=== PATIENT | female | born 1955 | race Caucasian/White ===

== ENCOUNTER 2018-05-16 12:23 | Emergency (ER) | payer OTHER, MEDICARE ==
[~2018-05-16] VITALS: Ht 167.6 cm; Wt 159.0 kg
[2018-05-16 12:40] VITALS: BP 142/73
--- NOTE | 2018-05-16 13:32 | NUR ---
XRAYS CANT BE DONE, CANT LIE DOWN DUE TO BREATHING
--- NOTE | 2018-05-16 13:40 | NUR ---
pt to ed room 23 via wheelchair from lobby in nad at this time
[2018-05-16] MEDS ORDERED: HYDROmorphone 2 MG/ML, 1ML ONE (14:29)
[2018-05-16] MEDS ORDERED: HYDROmorphone 2 MG/ML, 1ML IM ONE (14:30)
--- NOTE | 2018-05-16 14:59 | NUR ---
Patient/Caregiver given discharge instructions and they have confirmed that they understand the instructions. Patient wheeled to discharge area for pt comfort.
== END 2018-05-16 15:00 ==
LOC: ED 14:54
DX: M54.16 Radiculopathy, lumbar region (principal)
CPT/HCPCS: 72100; 96372; 99283; J1170

== ENCOUNTER 2018-06-25 15:55 | Inpatient (IN) | payer OTHER, MEDICARE ==
[~2018-06-25] VITALS: Ht 167.6 cm; Wt 151.0 kg
[2018-06-25 16:56] LABS: BASOPHILS # (AUTO) 0.02 x10^3/uL (0-0.1); BASOPHILS % (AUTO) 0 % (0-1); EOSINOPHILS # (AUTO) 0.08 x10^3/uL (0-0.4); EOSINOPHILS % (AUTO) 1 % (1-7); LYMPHOCYTES # (AUTO) 1.81 x10^3/uL (1-3.4); LYMPHOCYTES % (AUTO) 19 % (22-44); MD NO; MEAN CORPUSCULAR HEMOGLOBIN 31.2 pg (27.0-34.8); MEAN CORPUSCULAR HGB CONC 33.1 g/dL (32.4-35.8); MEAN CORPUSCULAR VOLUME 94.3 fL (80-100); MONOCYTES # (AUTO) 0.46 x10^3/uL (0.2-0.8); MONOCYTES % (AUTO) 5 % (2-9); NEUTROPHILS # (AUTO) 7.42 x10^3/uL (1.8-6.8); NEUTROPHILS % (AUTO) 76 % (42-75); PLATELET COUNT 205 x10^3/uL (130-400); RED BLOOD COUNT 4.36 x10^6/uL (3.82-5.3); RED CELL DISTRIBUTION WIDTH 14.8 % (9.6-15.2)
--- NOTE | 2018-06-25 17:00 | NUR ---
PT PRESENTED TO ED WITH SHORTNESS OF BREATH FOR A FEW DAYS. PT IS MORBIDLY OBESE AND STATES SHE WEARS HER BIPAP AT HOME. PT VERY ANXIOUS. PT PLACED IN ROOM AND PLACED ON BP, CARDIAC AND CONT. PULSE OXIMETER. PT PLACED ON 4-5 LITERS NC. EKG DONE AND PRESENTED TO .
[2018-06-25 17:08] LABS: ALANINE AMINOTRANSFERASE 41 U/L (12-78); ALBUMIN 3.4 g/dL (3.4-5.0); ANION GAP 9 mmol/L (5-15); CALCIUM 9.1 mg/dL (8.5-10.1); CHLORIDE 111 mmol/L (98-107); CREATININE 0.92 mg/dL (0.55-1.02)
[2018-06-25 17:12] LABS: ALKALINE PHOSPHATASE 138 U/L (45-117); BILIRUBIN,TOTAL 0.3 mg/dL (0.2-1.0); TROPONIN I < 0.015 ng/mL (0.000-0.045)
[2018-06-25] MEDS ORDERED: OMNIPAQUE 350 MG/ML, 100ML BOTTLE ONE (17:20)
[2018-06-25] MEDS ORDERED: OXYcodone 5 MG/5 ML ORAL.SOL UDC PO ONE (17:30)
[2018-06-25] MEDS ORDERED: OXYcodone IR 5MG TABLET ONE ×2 (17:34→17:35)
[2018-06-25] MEDS ORDERED: OXYcodone 5 MG/5 ML ORAL.SOL UDC ONE (17:37)
--- NOTE | 2018-06-25 17:44 | NUR ---
PT WITH PAIN. PT GIVEN OXYCODONE LIQUID
[2018-06-25] MEDS ORDERED: LISI-167 PO (18:57)
[2018-06-25] MEDS ORDERED: METF500T17 PO (18:58)
[2018-06-25] MEDS ORDERED: ATOR40TA78 PO (18:58)
[2018-06-25] MEDS ORDERED: IBUP-1223 PO (18:59)
[2018-06-25] MEDS ORDERED: ASPIRIN 81 MG TABLET CHEW PO ONE (19:00)
[2018-06-25] MEDS ORDERED: OXYC5TAB3 PO (19:00)
[2018-06-25] MEDS ORDERED: FLUT1BLS3 INH (19:01)
[2018-06-25] MEDS ORDERED: METH750T87 PO (19:01)
--- NOTE | 2018-06-25 19:02 | NUR ---
REPORT GIVEN TO DEIDRE GALLEGOS
--- NOTE | 2018-06-25 19:25 | NUR ---
ATTEMPTED TO CALL REPORT TO FLOOR. NURSE HAS TO CALL BACK AFTER RECIEVES FLOOR REPORT.
--- NOTE | 2018-06-25 19:48 | NUR ---
REPORT CALLED TO ADRIAN GALLEGOS.
[2018-06-25 21:39] VITALS: BP 120/71
[2018-06-25] MEDS ORDERED: GEMF600T8 PO (22:03)
[2018-06-25] MEDS ORDERED: GABA300C10 PO (22:03)
[2018-06-25] MEDS ORDERED: MONT10TA9 PO (22:03)
[2018-06-25] MEDS ORDERED: ALLO300T PO (22:03)
[2018-06-25] MEDS ORDERED: OXYcodone/APAP 10/325MG TABLET PO ONE (22:30)
[2018-06-25] MEDS ORDERED: GABAPENTIN 300 MG CAPSULE PO ONE (22:30)
[2018-06-25] MEDS: IBUPROFEN 800 MG TABLET PO SCH (22:43)
[2018-06-25] MEDS: ALLOPURINOL 300 MG TABLET PO SCH (22:43)
[2018-06-25] MEDS: METHOCARBAMOL 750 MG TABLET PO SCH (22:43)
[2018-06-25] MEDS ORDERED: BISACODYL 10 MG SUPP PR PRN (23:00)
[2018-06-25] MEDS ORDERED: TEMAZEPAM 15 MG CAPSULE PO PRN (23:00)
[2018-06-25] MEDS ORDERED: ONDANSETRON ODT 4 MG PO PRN (23:00)
[2018-06-25] MEDS ORDERED: LIDODERM 5% PATCH TD PRN (23:00)
[2018-06-25] MEDS ORDERED: LABETALOL 5MG/ML, 20ML IVPush PRN (23:00)
[2018-06-25] MEDS ORDERED: ACETAMINOPHEN 325 MG TABLET PO PRN (23:00)
[2018-06-25 23:29] LABS: TROPONIN I < 0.015 ng/mL (0.000-0.045)
[2018-06-25] MEDS: ENOXAPARIN 40 MG/0.4 ML SQ SCH (23:32)
[2018-06-26 01:21] VITALS: BP 112/69
[2018-06-26 03:00] VITALS: BP 144/75
[2018-06-26] MEDS: OXYcodone IR 5MG TABLET PO PRN ×5 (03:06→23:03)
[2018-06-26 05:19] LABS: BASOPHILS # (AUTO) 0.02 x10^3/uL (0-0.1); BASOPHILS % (AUTO) 0 % (0-1); EOSINOPHILS # (AUTO) 0.06 x10^3/uL (0-0.4); EOSINOPHILS % (AUTO) 1 % (1-7); LYMPHOCYTES # (AUTO) 2.01 x10^3/uL (1-3.4); LYMPHOCYTES % (AUTO) 22 % (22-44); MD NO; MEAN CORPUSCULAR HEMOGLOBIN 31.3 pg (27.0-34.8); MEAN CORPUSCULAR HGB CONC 33.4 g/dL (32.4-35.8); MEAN CORPUSCULAR VOLUME 93.7 fL (80-100); MEAN PLATELET VOLUME 8.2 fL (7.4-10.4); MONOCYTES # (AUTO) 0.54 x10^3/uL (0.2-0.8); MONOCYTES % (AUTO) 6 % (2-9); NEUTROPHILS # (AUTO) 6.49 x10^3/uL (1.8-6.8); NEUTROPHILS % (AUTO) 71 % (42-75); PLATELET COUNT 210 x10^3/uL (130-400); RED BLOOD COUNT 4.28 x10^6/uL (3.82-5.3); RED CELL DISTRIBUTION WIDTH 14.6 % (9.6-15.2)
[2018-06-26] MEDS: METHOCARBAMOL 750 MG TABLET PO SCH ×4 (05:24→20:53)
[2018-06-26 05:31] LABS: ANION GAP 7 mmol/L (5-15); CALCIUM 9.5 mg/dL (8.5-10.1); CHLORIDE 108 mmol/L (98-107)
[2018-06-26 05:38] LABS: CREATININE 0.91 mg/dL (0.55-1.02); TROPONIN I < 0.015 ng/mL (0.000-0.045)
[2018-06-26 06:53] VITALS: BP 125/78
[2018-06-26] MEDS: ALBUTEROL/IPRATROPIUM 2.5MG/0.5MG, 3 ML NPPB SCH ×4 (07:56→19:50)
[2018-06-26] MEDS: IBUPROFEN 800 MG TABLET PO SCH ×3 (08:13→20:54)
[2018-06-26 08:14] LABS: CLOSTRIDIUM DIFFICILE ANTIGEN NEGATIVE; CLOSTRIDIUM DIFFICILE TOXIN NEGATIVE (Negative)
[2018-06-26] MEDS: ALLOPURINOL 300 MG TABLET PO SCH ×2 (09:00→20:54)
[2018-06-26] MEDS: BUDESONIDE 0.5 MG/2 ML INHA NPPB SCH ×2 (10:47→19:50)
[2018-06-26] MEDS ORDERED: GLIM2TAB2 PO (10:47)
[2018-06-26] MEDS ORDERED: ERGO500017 PO (10:47)
[2018-06-26] MEDS ORDERED: LORA-247 PO (10:47)
[2018-06-26] MEDS ORDERED: HYDR25TA6 PO (10:47)
[2018-06-26] MEDS: INSULIN LISPRO 100 UNITS/ML, PEN SQ-INSULIN SCH ×3 (12:00→20:47)
[2018-06-26 12:11] VITALS: BP 132/83
[2018-06-26] MEDS: LORATADINE 10 MG TABLET PO SCH (12:12)
[2018-06-26] MEDS: GABAPENTIN 300 MG CAPSULE PO SCH ×3 (12:12→20:53)
[2018-06-26] MEDS: LISINOPRIL 20 MG TABLET PO SCH (12:12)
[2018-06-26 19:33] VITALS: BP 118/67
[2018-06-26] MEDS: ATORVASTATIN 20 MG TABLET PO SCH (20:53)
[2018-06-26] MEDS: MONTELUKAST 10 MG TABLET PO SCH (20:53)
[2018-06-26] MEDS: ENOXAPARIN 40 MG/0.4 ML SQ SCH (23:06)
[2018-06-27 01:13] VITALS: BP 143/72
[2018-06-27] MEDS: OXYcodone IR 5MG TABLET PO PRN ×4 (03:13→17:50)
[2018-06-27] MEDS: GABAPENTIN 300 MG CAPSULE PO SCH ×4 (05:56→20:27)
[2018-06-27] MEDS: METHOCARBAMOL 750 MG TABLET PO SCH ×4 (05:56→20:26)
[2018-06-27 06:31] VITALS: BP 126/78
[2018-06-27] MEDS: ALBUTEROL/IPRATROPIUM 2.5MG/0.5MG, 3 ML NPPB SCH ×4 (06:54→19:34)
[2018-06-27] MEDS: BUDESONIDE 0.5 MG/2 ML INHA NPPB SCH ×2 (06:54→19:34)
[2018-06-27] MEDS: INSULIN LISPRO 100 UNITS/ML, PEN SQ-INSULIN SCH ×4 (07:00→20:44)
[2018-06-27] MEDS: LISINOPRIL 20 MG TABLET PO SCH (08:00)
[2018-06-27] MEDS: IBUPROFEN 800 MG TABLET PO SCH ×3 (08:01→20:27)
[2018-06-27] MEDS: LORATADINE 10 MG TABLET PO SCH (08:01)
[2018-06-27] MEDS: PANTOPRAZOLE 20MG TABLET PO SCH ×2 (09:30→15:56)
[2018-06-27] MEDS ORDERED: POTASSIUM CHLORIDE 20 MEQ TAB.ER.PRT PO ONE (09:30)
[2018-06-27] MEDS ORDERED: FUROSEMIDE 20 MG TABLET PO ONE (09:30)
[2018-06-27] MEDS: DOXYCYCLINE 100MG TABLET PO SCH ×2 (10:17→20:26)
[2018-06-27 12:09] VITALS: BP 115/65
[2018-06-27 20:00] VITALS: BP 113/56
[2018-06-27] MEDS: MONTELUKAST 10 MG TABLET PO SCH (20:26)
[2018-06-27] MEDS: ATORVASTATIN 20 MG TABLET PO SCH (20:26)
[2018-06-27] MEDS: ALLOPURINOL 300 MG TABLET PO SCH (20:26)
[2018-06-27] MEDS: ENOXAPARIN 40 MG/0.4 ML SQ SCH (23:01)
[2018-06-28] MEDS: OXYcodone IR 5MG TABLET PO PRN ×4 (00:27→12:44)
[2018-06-28 00:34] VITALS: BP 154/73
[2018-06-28] MEDS: METHOCARBAMOL 750 MG TABLET PO SCH ×2 (05:07→10:50)
[2018-06-28] MEDS: GABAPENTIN 300 MG CAPSULE PO SCH ×2 (05:07→10:50)
[2018-06-28] MEDS: PANTOPRAZOLE 20MG TABLET PO SCH (05:13)
[2018-06-28] MEDS: BUDESONIDE 0.5 MG/2 ML INHA NPPB SCH (06:55)
[2018-06-28] MEDS: ALBUTEROL/IPRATROPIUM 2.5MG/0.5MG, 3 ML NPPB SCH ×3 (06:55→12:00)
[2018-06-28 07:09] VITALS: BP 148/78
[2018-06-28] MEDS: INSULIN LISPRO 100 UNITS/ML, PEN SQ-INSULIN SCH ×2 (08:26→11:00)
[2018-06-28] MEDS: LORATADINE 10 MG TABLET PO SCH (08:30)
[2018-06-28] MEDS: LISINOPRIL 20 MG TABLET PO SCH (08:31)
[2018-06-28] MEDS: DOXYCYCLINE 100MG TABLET PO SCH (08:31)
[2018-06-28] MEDS: IBUPROFEN 800 MG TABLET PO SCH (08:31)
[2018-06-28] MEDS ORDERED: PRED10TA PO (11:28)
[2018-06-28] MEDS ORDERED: DOXY100T PO (11:28)
[2018-06-28] MEDS ORDERED: IPRA3AMP30 NPPB (11:28)
== END 2018-06-28 13:10 | disposition home health service (06) | DRG 189 ==
LOC: ED 16:34 → EDIP 18:20 → 5SO 20:07 → DCLOUNGE 06-28 13:03
PROVIDERS: ADMIT Family Medicine; ATTEND Family Medicine
PROC: 5A09357 Assistance with Respiratory Ventilation, Less than 24 Consecutive Hours, Continuous Positive Airway Pressure (ICD-10-PCS; principal; 2018-06-26)
DX: J96.21 Acute and chronic respiratory failure with hypoxia (principal); E43 Unspecified severe protein-calorie malnutrition; E66.2 Morbid (severe) obesity with alveolar hypoventilation; Z68.43 Body mass index [BMI] 50.0-59.9, adult; J44.0 Chronic obstructive pulmonary disease with (acute) lower respiratory infection; J44.1 Chronic obstructive pulmonary disease with (acute) exacerbation; F11.23 Opioid dependence with withdrawal; J20.9 Acute bronchitis, unspecified; G89.29 Other chronic pain; M54.2 Cervicalgia; E11.9 Type 2 diabetes mellitus without complications; K52.9 Noninfective gastroenteritis and colitis, unspecified; M41.9 Scoliosis, unspecified; Z82.0 Family history of epilepsy and other diseases of the nervous system; Z87.891 Personal history of nicotine dependence; Z90.710 Acquired absence of both cervix and uterus; M54.16 Radiculopathy, lumbar region
CPT/HCPCS: 36415; 99285; J7620; J7626; 71275; 80048; 80053; 82962; 83880; 84484; 85025; 87324; 93005; 93306; 94640; 94660; G0378; J1650; Q0162; Q9967; J1815; J7512

== ENCOUNTER 2018-07-10 13:58 | Inpatient (IN) | payer OTHER, MEDICARE ==
[~2018-07-10] VITALS: Ht 167.6 cm; Wt 161.4 kg
[~2018-07-10 13:58] MED LIST: ALLO300T PO; ATOR40TA78 PO; DOXY100T PO; ERGO500017 PO; FLUT1BLS3 INH; GABA300C10 PO; GEMF600T8 PO; GLIM2TAB2 PO; HYDR25TA6 PO; IBUP-1223 PO; IPRA3AMP30 NPPB; LISI-167 PO; LORA-247 PO; METF500T17 PO; METH750T87 PO; MONT10TA9 PO; OXYC5TAB3 PO; PRED10TA PO
[2018-07-10] MEDS ORDERED: ALBUTEROL/IPRATROPIUM 2.5MG/0.5MG, 3 ML ONE (14:30)
[2018-07-10] MEDS ORDERED: PLEASE ENTER HEIGHT AND WEIGHT MC SCH (14:30)
--- NOTE | 2018-07-10 14:30 | NUR ---
BREAK RN: THIS IS A 62 YO FEMALE WHO PRESENTS TO THE ER C/O SOB X A FEW WEEKS. PT REPORTS NO IMPROVEMENT SINCE BEING ADMITTED RECENTLY. PT AO X 4. SKIN PWD. RESP RAPID AND SHALLOW AT 30 RR. PT ON 4LNC. PT ABLE TO BROWN W/O DIFFICULTY. PT HAS BEEN UP TO BEDSIDE COMMODE AND ASSISTED BACK TO BED. PT REQUESTING PAIN MEDICATION FOR CHRONIC PAIN, GERARDO MAHMOOD AWARE. AWAITING ORDERS. PT ON CONT BP AND O2 MONITORS. CALL LIGHT WITHIN REACH.
--- NOTE | 2018-07-10 14:39 | NUR ---
BREAK RN: RT AT BEDSIDE FOR TREATMENT.
[2018-07-10 14:53] LABS: BASOPHILS # (AUTO) 0.02 x10^3/uL (0-0.1); BASOPHILS % (AUTO) 0 % (0-1); EOSINOPHILS # (AUTO) 0.02 x10^3/uL (0-0.4); EOSINOPHILS % (AUTO) 0 % (1-7); LYMPHOCYTES # (AUTO) 1.92 x10^3/uL (1-3.4); LYMPHOCYTES % (AUTO) 14 % (22-44); MD NO; MEAN CORPUSCULAR HEMOGLOBIN 31.6 pg (27.0-34.8); MEAN CORPUSCULAR HGB CONC 33.4 g/dL (32.4-35.8); MEAN CORPUSCULAR VOLUME 94.6 fL (80-100); MEAN PLATELET VOLUME 8.4 fL (7.4-10.4); MONOCYTES # (AUTO) 0.54 x10^3/uL (0.2-0.8); MONOCYTES % (AUTO) 4 % (2-9); NEUTROPHILS # (AUTO) 10.95 x10^3/uL (1.8-6.8); NEUTROPHILS % (AUTO) 81 % (42-75); PLATELET COUNT 233 x10^3/uL (130-400); RED BLOOD COUNT 4.61 x10^6/uL (3.82-5.3); RED CELL DISTRIBUTION WIDTH 15.2 % (9.6-15.2)
[2018-07-10 14:55] LABS: ALBUMIN 3.6 g/dL (3.4-5.0); ANION GAP 8 mmol/L (5-15); CALCIUM 9.7 mg/dL (8.5-10.1); CHLORIDE 108 mmol/L (98-107); CREATININE 0.92 mg/dL (0.55-1.02)
[2018-07-10 14:59] LABS: TROPONIN I < 0.015 ng/mL (0.000-0.045)
--- NOTE | 2018-07-10 15:39 | NUR ---
REPORT GIVEN TO MAMADOU CORNEJO RN. ALL QUESTIONS ANSWERED. AWAITING PT TRANSPORT.
[2018-07-10] MEDS ORDERED: ONDANSETRON ODT 4 MG PO PRN (16:00)
[2018-07-10] MEDS ORDERED: GABAPENTIN 300 MG CAPSULE PO PRN (16:00)
[2018-07-10] MEDS ORDERED: KETOROLAC 30 MG/1 ML IV PRN (16:00)
[2018-07-10] MEDS ORDERED: ACETAMINOPHEN 325 MG TABLET PO PRN (16:00)
[2018-07-10] MEDS ORDERED: ONDANSETRON 2MG/ML, 2ML IVPush PRN (16:00)
[2018-07-10 16:18] VITALS: BP 148/68
[2018-07-10] MEDS: methylPREDNISolone SOD SUCC 125 MG/2 ML IVPush SCH ×2 (16:24→23:22)
[2018-07-10] MEDS: INSULIN LISPRO 100 UNITS/ML, PEN SQ-INSULIN SCH ×2 (16:30→21:22)
[2018-07-10] MEDS ORDERED: ALBUTEROL/IPRATROPIUM 2.5MG/0.5MG, 3 ML NPPB PRN (17:30)
[2018-07-10] MEDS: OXYcodone IR 5MG TABLET PO PRN ×2 (17:55→23:22)
[2018-07-10] MEDS: CEFDINIR 300 MG CAPSULE PO SCH (17:55)
[2018-07-10] MEDS: ENOXAPARIN 40 MG/0.4 ML SQ SCH (17:55)
[2018-07-10] MEDS ORDERED: METHOCARBAMOL 750 MG TABLET ONE (17:59)
[2018-07-10] MEDS: IBUPROFEN 600 MG TABLET PO PRN (18:00)
[2018-07-10 18:52] VITALS: BP 108/62
[2018-07-10] MEDS: ALBUTEROL/IPRATROPIUM 2.5MG/0.5MG, 3 ML NPPB SCH (19:57)
[2018-07-10] MEDS: BUDESONIDE 0.5 MG/2 ML INHA NPPB SCH (19:57)
[2018-07-10 20:37] LABS: TROPONIN I < 0.015 ng/mL (0.000-0.045)
[2018-07-10] MEDS: GABAPENTIN 300 MG CAPSULE PO SCH (20:52)
[2018-07-10] MEDS: MONTELUKAST 10 MG TABLET PO SCH (20:52)
[2018-07-10] MEDS: ALLOPURINOL 300 MG TABLET PO SCH (20:52)
[2018-07-10] MEDS: ATORVASTATIN 40 MG TABLET PO SCH (20:52)
[2018-07-10] MEDS ORDERED: METHOCARBAMOL 750 MG TABLET PO SCH (21:00)
[2018-07-11] MEDS: METHOCARBAMOL 750 MG TABLET PO SCH ×4 (00:37→19:17)
[2018-07-11] MEDS: IBUPROFEN 600 MG TABLET PO PRN ×4 (00:37→19:17)
[2018-07-11 00:47] VITALS: BP 118/65
[2018-07-11 02:27] LABS: ALBUMIN 3.4 g/dL (3.4-5.0); ANION GAP 7 mmol/L (5-15); BASOPHILS # (AUTO) 0.01 x10^3/uL (0-0.1); BASOPHILS % (AUTO) 0 % (0-1); CALCIUM 9.7 mg/dL (8.5-10.1); CHLORIDE 104 mmol/L (98-107); EOSINOPHILS % (AUTO) 0 % (1-7); LYMPHOCYTES # (AUTO) 0.94 x10^3/uL (1-3.4); LYMPHOCYTES % (AUTO) 10 % (22-44); MD NO; MEAN CORPUSCULAR HEMOGLOBIN 31.5 pg (27.0-34.8); MEAN CORPUSCULAR HGB CONC 33.4 g/dL (32.4-35.8); MEAN CORPUSCULAR VOLUME 94.2 fL (80-100); MEAN PLATELET VOLUME 8.4 fL (7.4-10.4); MONOCYTES # (AUTO) 0.15 x10^3/uL (0.2-0.8); MONOCYTES % (AUTO) 2 % (2-9); NEUTROPHILS # (AUTO) 8.64 x10^3/uL (1.8-6.8); NEUTROPHILS % (AUTO) 89 % (42-75); PLATELET COUNT 194 x10^3/uL (130-400); RED CELL DISTRIBUTION WIDTH 15.1 % (9.6-15.2)
[2018-07-11 02:31] LABS: ALANINE AMINOTRANSFERASE 57 U/L (12-78); ALKALINE PHOSPHATASE 138 U/L (45-117); BILIRUBIN,TOTAL 0.4 mg/dL (0.2-1.0); CREATININE 0.96 mg/dL (0.55-1.02); TOTAL PROTEIN 6.7 g/dL (6.4-8.2); TROPONIN I < 0.015 ng/mL (0.000-0.045)
[2018-07-11] MEDS: OXYcodone IR 5MG TABLET PO PRN ×4 (04:48→21:17)
[2018-07-11] MEDS: methylPREDNISolone SOD SUCC 125 MG/2 ML IVPush SCH ×3 (06:18→23:52)
[2018-07-11] MEDS: GABAPENTIN 300 MG CAPSULE PO SCH ×4 (06:18→23:50)
[2018-07-11] MEDS: ALBUTEROL/IPRATROPIUM 2.5MG/0.5MG, 3 ML NPPB SCH ×4 (07:00→21:51)
[2018-07-11] MEDS: INSULIN LISPRO 100 UNITS/ML, PEN SQ-INSULIN SCH ×4 (07:00→21:20)
[2018-07-11] MEDS: BUDESONIDE 0.5 MG/2 ML INHA NPPB SCH ×2 (07:09→21:52)
[2018-07-11 08:10] VITALS: BP 126/66
[2018-07-11] MEDS ORDERED: REGADENOSON 0.4 MG/5 ML SYRINGE ONE (08:52)
[2018-07-11] MEDS ORDERED: FUROSEMIDE 40 MG/4 ML IV ONE (09:30)
[2018-07-11] MEDS: LORATADINE 10 MG TABLET PO SCH (10:13)
[2018-07-11] MEDS: HYDROCHLOROTHIAZIDE 25 MG TABLET PO SCH (10:13)
[2018-07-11] MEDS: LISINOPRIL 10 MG TABLET PO SCH (10:13)
[2018-07-11] MEDS: CEFDINIR 300 MG CAPSULE PO SCH ×2 (10:13→21:14)
[2018-07-11 15:19] VITALS: BP 119/53
[2018-07-11] MEDS: ENOXAPARIN 40 MG/0.4 ML SQ SCH (16:34)
[2018-07-11 19:18] VITALS: BP 111/61
[2018-07-11] MEDS: ATORVASTATIN 40 MG TABLET PO SCH (21:14)
[2018-07-11] MEDS: MONTELUKAST 10 MG TABLET PO SCH (21:14)
[2018-07-11] MEDS: ALLOPURINOL 300 MG TABLET PO SCH (21:14)
[2018-07-12 00:40] VITALS: BP 149/76
[2018-07-12] MEDS: IBUPROFEN 600 MG TABLET PO PRN ×4 (01:25→20:40)
[2018-07-12] MEDS: METHOCARBAMOL 750 MG TABLET PO SCH ×4 (01:25→18:40)
[2018-07-12] MEDS: OXYcodone IR 5MG TABLET PO PRN ×6 (01:44→22:44)
[2018-07-12] MEDS: GABAPENTIN 300 MG CAPSULE PO SCH ×4 (06:02→20:39)
[2018-07-12 06:12] LABS: BASOPHILS # (AUTO) 0.02 x10^3/uL (0-0.1); BASOPHILS % (AUTO) 0 % (0-1); EOSINOPHILS # (AUTO) 0.08 x10^3/uL (0-0.4); EOSINOPHILS % (AUTO) 1 % (1-7); LYMPHOCYTES # (AUTO) 1.18 x10^3/uL (1-3.4); LYMPHOCYTES % (AUTO) 8 % (22-44); MD NO; MEAN CORPUSCULAR HEMOGLOBIN 31.7 pg (27.0-34.8); MEAN CORPUSCULAR HGB CONC 33.4 g/dL (32.4-35.8); MEAN CORPUSCULAR VOLUME 95.1 fL (80-100); MEAN PLATELET VOLUME 8.4 fL (7.4-10.4); MONOCYTES % (AUTO) 1 % (2-9); NEUTROPHILS # (AUTO) 14.25 x10^3/uL (1.8-6.8); NEUTROPHILS % (AUTO) 91 % (42-75); PLATELET COUNT 212 x10^3/uL (130-400); RED CELL DISTRIBUTION WIDTH 14.9 % (9.6-15.2)
[2018-07-12 06:16] LABS: ALBUMIN 3.5 g/dL (3.4-5.0); ANION GAP 8 mmol/L (5-15); CALCIUM 9.7 mg/dL (8.5-10.1); CHLORIDE 104 mmol/L (98-107)
[2018-07-12 06:21] LABS: ALANINE AMINOTRANSFERASE 50 U/L (12-78); ALKALINE PHOSPHATASE 130 U/L (45-117); BILIRUBIN,TOTAL 0.5 mg/dL (0.2-1.0); CREATININE 1.05 mg/dL (0.55-1.02); TOTAL PROTEIN 6.9 g/dL (6.4-8.2)
[2018-07-12] MEDS: INSULIN LISPRO 100 UNITS/ML, PEN SQ-INSULIN SCH ×4 (07:00→20:39)
[2018-07-12] MEDS: ALBUTEROL/IPRATROPIUM 2.5MG/0.5MG, 3 ML NPPB SCH ×4 (07:16→19:42)
[2018-07-12] MEDS: BUDESONIDE 0.5 MG/2 ML INHA NPPB SCH ×2 (07:16→19:42)
[2018-07-12] MEDS ORDERED: REGADENOSON 0.4 MG/5 ML SYRINGE ONE (07:55)
[2018-07-12 09:26] VITALS: BP 112/71
[2018-07-12] MEDS: CEFDINIR 300 MG CAPSULE PO SCH ×2 (09:28→20:39)
[2018-07-12] MEDS: HYDROCHLOROTHIAZIDE 25 MG TABLET PO SCH (09:29)
[2018-07-12] MEDS: LISINOPRIL 10 MG TABLET PO SCH (09:30)
[2018-07-12] MEDS: LORATADINE 10 MG TABLET PO SCH (09:30)
[2018-07-12 10:02] LABS: HEMOGLOBIN A1C 6.4 % (4.2-6.3)
[2018-07-12] MEDS: INSULIN GLARGINE 100 UNITS/ML, PEN SQ-INSULIN SCH (10:41)
[2018-07-12] MEDS: methylPREDNISolone SOD SUCC 125 MG/2 ML IVPush SCH ×2 (11:38→20:41)
[2018-07-12 13:55] VITALS: BP 118/71
[2018-07-12] MEDS: DILTIAZEM 60 MG TABLET PO SCH ×2 (16:32→22:44)
[2018-07-12 18:28] VITALS: BP 123/70
[2018-07-12] MEDS: ENOXAPARIN 40 MG/0.4 ML SQ SCH (18:40)
[2018-07-12] MEDS: ATORVASTATIN 40 MG TABLET PO SCH (20:39)
[2018-07-12] MEDS: MONTELUKAST 10 MG TABLET PO SCH (20:40)
[2018-07-12] MEDS: ALLOPURINOL 300 MG TABLET PO SCH (20:40)
[2018-07-13 00:50] VITALS: BP 109/62
[2018-07-13] MEDS: METHOCARBAMOL 750 MG TABLET PO SCH ×2 (00:58→08:10)
[2018-07-13] MEDS: methylPREDNISolone SOD SUCC 125 MG/2 ML IVPush SCH ×2 (02:41→08:11)
[2018-07-13] MEDS: IBUPROFEN 600 MG TABLET PO PRN ×2 (02:42→09:55)
[2018-07-13] MEDS: OXYcodone IR 5MG TABLET PO PRN ×3 (02:42→11:27)
[2018-07-13] MEDS: GABAPENTIN 300 MG CAPSULE PO SCH ×2 (06:41→11:27)
[2018-07-13] MEDS: DILTIAZEM 60 MG TABLET PO SCH ×2 (06:41→11:27)
[2018-07-13] MEDS: BUDESONIDE 0.5 MG/2 ML INHA NPPB SCH (07:00)
[2018-07-13] MEDS: ALBUTEROL/IPRATROPIUM 2.5MG/0.5MG, 3 ML NPPB SCH ×3 (07:00→14:50)
[2018-07-13] MEDS: CEFDINIR 300 MG CAPSULE PO SCH (08:10)
[2018-07-13] MEDS: HYDROCHLOROTHIAZIDE 25 MG TABLET PO SCH (08:10)
[2018-07-13] MEDS: LORATADINE 10 MG TABLET PO SCH (08:10)
[2018-07-13] MEDS: INSULIN LISPRO 100 UNITS/ML, PEN SQ-INSULIN SCH ×2 (08:12→11:28)
[2018-07-13] MEDS: INSULIN GLARGINE 100 UNITS/ML, PEN SQ-INSULIN SCH (08:12)
[2018-07-13 08:14] VITALS: BP 116/72
[2018-07-13] MEDS ORDERED: LISINOPRIL 5 MG TABLET PO SCH (09:00)
[2018-07-13] MEDS ORDERED: GLIM4TAB PO (12:37)
[2018-07-13] MEDS ORDERED: DILT240C80 PO (12:37)
[2018-07-13] MEDS ORDERED: PRED10TA14 PO (12:37)
[2018-07-13] MEDS ORDERED: LISI5TAB7 PO (12:37)
[2018-07-13] MEDS ORDERED: CEFD300C37 PO (12:37)
[2018-07-13] MEDS ORDERED: AZIT500T PO (12:37)
[2018-07-13] MEDS ORDERED: POLY17PO5 PO (12:39)
== END 2018-07-13 18:49 | DRG 682 ==
LOC: ED 15:05 → EDIP 15:06 → ED 15:48 → 5SO 16:06
PROVIDERS: ADMIT Internal Medicine; ATTEND Internal Medicine
DX: N17.0 Acute kidney failure with tubular necrosis (principal); R65.11 Systemic inflammatory response syndrome (SIRS) of non-infectious origin with acute organ dysfunction; J44.1 Chronic obstructive pulmonary disease with (acute) exacerbation; I24.9 Acute ischemic heart disease, unspecified; J96.11 Chronic respiratory failure with hypoxia; F11.20 Opioid dependence, uncomplicated; I50.32 Chronic diastolic (congestive) heart failure; Z68.43 Body mass index [BMI] 50.0-59.9, adult; I11.0 Hypertensive heart disease with heart failure; G89.29 Other chronic pain; T38.0X5A Adverse effect of glucocorticoids and synthetic analogues, initial encounter; G47.33 Obstructive sleep apnea (adult) (pediatric); E78.5 Hyperlipidemia, unspecified; E66.01 Morbid (severe) obesity due to excess calories; E11.9 Type 2 diabetes mellitus without complications; D72.829 Elevated white blood cell count, unspecified; Z99.81 Dependence on supplemental oxygen; Z90.710 Acquired absence of both cervix and uterus; Z87.891 Personal history of nicotine dependence; Z79.84 Long term (current) use of oral hypoglycemic drugs; Z88.0 Allergy status to penicillin; Z88.8 Allergy status to other drugs, medicaments and biological substances
CPT/HCPCS: 36415; 99285; J7620; J7626; 71045; 80048; 80053; 82040; 82962; 83036; 83880; 84484; 85025; 85379; 93005; 94640; G0378; J1650; J2785; J1815; J2930; J7512